=== PATIENT | male | born 1950 ===

== ENCOUNTER 2023-04-12 09:19 | Day surgery (SDC) | payer OTHER ==
[2023-04-12] MEDS: Ringers Lactate 1,000 ML IV ONE ×2 (10:00→10:27)
[2023-04-12] MEDS ORDERED: CEFAZOLIN SODIUM 2 GM/VIAL ONE (10:07)
[2023-04-12 10:14] LABS: Potassium 4.3 mEq/L (3.5-5.1)
[2023-04-12] MEDS ORDERED: BUPIVACAINE 0.25% PF 30 ML VIAL ONE (10:34)
[2023-04-12] MEDS ORDERED: FENTANYL CITR 100 MCG/2 ML ONE (10:38)
[2023-04-12] MEDS ORDERED: propofoL 200 MG/20 ML VIAL IV ONE (10:38)
[2023-04-12] MEDS ORDERED: MIDAZOLAM HCL 2 MG/2 ML INJ ONE (10:38)
[2023-04-12] MEDS ORDERED: ROCURONIUM 50 MG/5 ML VIAL IV ONE (10:38)
[2023-04-12] MEDS ORDERED: LIDOCAINE 2% MPF 5 ML VIAL ONE (10:39)
[2023-04-12] MEDS ORDERED: dexAMETHasone 10 MG/ML VIAL ONE ×2 (10:39→11:55)
[2023-04-12] MEDS ORDERED: ONDANSETRON 4 MG/2 ML VIAL ONE (10:39)
[2023-04-12] MEDS ORDERED: KETOROLAC 30 MG/ML INJ ONE (10:39)
[2023-04-12] MEDS ORDERED: NS 0.9% VIAL 20 ML ONE (11:25)
[2023-04-12] MEDS ORDERED: BUPIVACAINE 0.25% PF 10 ML VIAL ONE (11:56)
[2023-04-12] MEDS ORDERED: EPINEPHRINE/PF 1 MG/ML AMP ONE (11:56)
--- NOTE | 2023-04-12 12:01 | P.OP ---
Preoperative diagnosis: Umbilical Hernia - incarcerated Postoperative diagnosis: Umbilical Hernia - incarcerated Primary procedure: Laparoscopic Umbilical Hernia Repair with mesh Anesthesia: GETA + Local Estimated blood loss: <2 cc Specimen: Hernia contents- adipose Findings: ~ 1 cm umbilical hernia Complications: None Implants: Bard Ventralite ST mesh 11.4 cm round, Sorbafix Tacks x 45 Transferred to: Recovery Room Condition: Good
[2023-04-12 12:59] VITALS: BP 162/69; TEMP 98; O2SAT 98
--- NOTE | 2023-04-12 13:03 | OP ---
Date of Procedure: 04/12/2023 Surgeon: Davon Bay MD, Preoperative Diagnosis: Umbilical hernia - incarcerated. Postoperative Diagnosis: Umbilical hernia - incarcerated. Procedure Performed: A laparoscopic umbilical hernia repair with mesh. Anesthesia: General endotracheal plus local with 0.25% Marcaine. Estimated Blood Loss: Less than 2 cc. Specimens: Hernia contents - adipose tissue. Findings: Approximately 1 cm incarcerated umbilical hernia with adipose tissue. Complications: None. Implants: Bard Ventralight ST mesh with Echo Positioning System, 11.4 cm round mesh utilized, and So rbaFix absorbable fixation tacks x45 utilized. Disposition: The patient was transferred to the recovery room in good condition. Procedure In Detail: After informed consent was obtained, the patient was brought to the operating r oom, prepped and draped in the usual sterile fashion after adequate anesthesia was achieved. I anest hetized an area of the left upper quadrant down to the subcutaneous tissues. A 5 mm 0-degree optical trocar was introduced into the abdomen without evidence of complication. Insufflation was obtained to 15 mmHg at this time. There was no injury to vital structures upon entry into the abdomen. Addit ional trocar was placed in the left mid abdomen. This was similarly anesthetized and sharply incised . A 12 mm trocar was placed under direct visualization without evidence of complication. At this po int, I inspected the umbilical hernia, found to be approximately 1 cm in size with adipose tissue con tained. I used a LigaSure type energy device to remove the adipose tissue off the anterior bowel wal l from the hernia contents. This was sent off for pathologic examination as hernia contents. I then swept all the adipose tissue both cranially and caudally to allow for appropriate landing zone of th e mesh. I then sized the 11.4 cm Bard Ventralight mesh, placed on back table. At this point, I brou ght in the Endo Stitch with 0 V-Loc suture and closed the hernia defect imbricating the hernia sac, c losing the defect at this point with good approximation of the tissues. I then deployed the Bard Rui tralight ST mesh with Echo Positioning System through a separate stab incision in the supraumbilical position after appropriately anesthetizing skin. The balloon deployment system was deployed at this point. I then secured the mesh to the anterior abdominal wall using SorbaFix absorbable fixation tac ks. The balloon deployment system was removed, found to be intact on the back table. I then used a total of 45 tacks to secure a double crown type orientation to the mesh to the anterior abdominal wal l with good approximation of the mesh to the anterior bowel wall. At this point, the left mid abdome n trocar site was closed using a Remy-Kamla suture passer with 0 Vicryl in an interrupted fashio n with good approximation of tissues. The remaining trocar was used to desufflate the abdomen under direct visualization without evidence of complication. Remaining trocars were removed. All skin inc isions were then copiously irrigated and closed with a 4-0 Monocryl in a running fashion. Dermabond placed over top. The patient tolerated the procedure well without evidence of complication and trans ferred to PACU in good condition. All counts were correct at the end of the case. ERBECA/RAMÍREZ Voice ID: [id number] Report ID: [id number]
--- NOTE | 2023-04-12 13:08 | EKG ---
Test Date: 2023-04-12 Test Time: 09:31:30 Traffic Rate Clerk: VANNESSA MEASUREMENT RESULTS: Intervals: Rate: 61 CO: 162 QRSD: 92 QT: 436 QTc: 438 [place]: P: 63 CO: 162 QRS: -40 T: 66 INTERPRETIVE STATEMENTS: Normal sinus rhythm Left axis deviation Incomplete right bundle branch block Abnormal ECG Compared to ECG 06/29/2017 09:22:47 Left-axis deviation now present Incomplete right bundle-branch block now present Sinus bradycardia no longer present Electronically Signed On 04-12-23 13:07:31 CDT by [place]
[2023-04-12] MEDS ORDERED: HYDROCODONE/APAP 10/325 TAB ONE (13:17)
== END 2023-04-12 13:47 | disposition home or self-care (01) ==
LOC: OR 09:19
PROVIDERS: ATTEND Surgery
PROC: 0WUF4JZ Supplement Abdominal Wall with Synthetic Substitute, Percutaneous Endoscopic Approach (ICD-10-PCS; principal; 2023-04-12 11:30)
DX: K42.0 Umbilical hernia with obstruction, without gangrene (principal)
CPT/HCPCS: 93005; 80048; 36415; 88302; 49592; A4216; J2704; J0171; J2001; J2250; J3010; J1100 ×2; J2405; J7120; C1781